=== PATIENT | male | born 1965 | race Caucasian/White ===

== ENCOUNTER 2017-02-25 18:04 | Emergency (ER) | payer OTHER ==
[~2017-02-25] VITALS: Ht 188 cm; Wt 104.3 kg
[~2017-02-25 18:04] MED LIST: AMLO5TAB PO; NEURONTIN600 MG PO; OMEPRAZOLE40 MG PO; PERCOCET 325 MG1 TA4 PO
[2017-02-25] MEDS ORDERED: WELLBUTRIN SR100 MG PO (18:11)
--- OUTSIDE RECORDS SUMMARY | 2017-02-25 18:14 | External Medical Summary Rpt ---
Author Author CHACHA Address Unknown Phone [email or web address] Purpose Continuity of Care Document - through 2016
--- OUTSIDE RECORDS SUMMARY | 2017-02-25 18:14 | External Medical Summary Rpt ---
Author Author CHACHA Vizacrra, CHACHA Vizcarra Organization [employer] Address Unknown Phone Unavailable
--- OUTSIDE RECORDS SUMMARY | 2017-02-25 18:14 | External Medical Summary Rpt ---
Author Author CHACHA Address Unknown Phone [email or web address] Purpose Continuity of Care Document - through 2016
--- OUTSIDE RECORDS SUMMARY | 2017-02-25 18:14 | External Medical Summary Rpt ---
Author Author CHACHA Address Unknown Phone [email or web address] Purpose Continuity of Care Document - through 2016
--- OUTSIDE RECORDS SUMMARY | 2017-02-25 18:14 | External Medical Summary Rpt ---
Author Author CHACHA Vizcarra, CHACHA Vizcarra Organization [employer] Address Unknown Phone Unavailable
--- OUTSIDE RECORDS SUMMARY | 2017-02-25 18:14 | External Medical Summary Rpt ---
Author Author CHACHA Address Unknown Phone [email or web address] Purpose Continuity of Care Document - through 2016
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
[2017-02-25] MEDS ORDERED: HYDROCODONE/ACE1 TA5 PO (19:05)
[2017-02-25 19:12] VITALS: BP 128/88
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
== END 2017-02-25 19:12 | disposition home or self-care (01) ==
LOC: UTC 18:04
DX: S22.31XA Fracture of one rib, right side, initial encounter for closed fracture (principal); I10 Essential (primary) hypertension; Z72.0 Tobacco use; W20.8XXA Other cause of strike by thrown, projected or falling object, initial encounter

== ENCOUNTER → 2017-07-09 | Outpatient (CLI) | payer OTHER ==
[~2017-07-09] MED LIST changes: +HYDROCODONE/ACE1 TA5 PO; +WELLBUTRIN SR100 MG PO
[2017-07-09 18:13] LABS: LYMPH % 32.4 % (10-50)
[2017-07-09 18:43] LABS: BUN 11 mg/dL (7-18)
[2017-07-09 18:54] LABS: GFR (ESTIMATED) 102 ML/MIN (>60)
== END ==
LOC: LAB 16:59
PROVIDERS: Emergency Medicine
DX: I71.9 Aortic aneurysm of unspecified site, without rupture (principal)